=== PATIENT | male | born 1940 | race Caucasian/White ===

== ENCOUNTER 2022-05-23 12:57 | Observation (INO) | payer MEDICARE, SELFPAY ==
[2022-05-23] VITALS (10 sets, daily range): BP systolic 132–153; BP diastolic 63–86; PULSE 53–112; RESP 15–19; TEMP 36–36.8; O2SAT 96–98; BMI 26.6; BMI 26.2
[2022-05-23 13:12] LABS: Absolute Lymphocyte Count 3.73 X10^3/uL (0.83-4.51); Absolute Neutrophil Count 7.7 X10^3/uL (2.0-7.7); Basophil# 0.08 X10^3/uL; Basophil% 0.6 % (0-1); Eosinophil# 0.08 X10^3/uL; Eosinophils% 0.6 % (0-5); Hematocrit 51.7 % (40-54); Lymphocyte # 3.73 X10^3/ul (0.83-4.51); Mean Corp Hgb Conc 32.9 g/dL (32-36); Mean Corpuscular Volume 85.2 fL (80-94); Mean Platelet Vol. 11.2 fl (6.2-12.0); Monocyte# 1.16 X10^3/uL; NRBC Flagged by Analyzer 0 % (0-5); Neutrophil # 7.73 X10^3/uL (2.7-7.7); Neutrophil % 60.1 % (47-70); Platelet Count 233 K/mm3 (150-450); RBC Distribution Width CV 13.2 % (11.6-14.6); RBC Distribution Width SD 40.5 fl (35.1-43.9); Red Blood Count 6.07 M/mm3 (4.6-6.2); White Blood Count 12.9 K/mm3 (4.4-11.0)
--- NOTE | 2022-05-23 13:20 | RAD_ITS ---
STUDY: X-RAY CHEST REASON FOR EXAM: Male, 81 years old. Chest pain. Syncope. TECHNIQUE: Single AP portable view of the chest. COMPARISON: None. FINDINGS: EKG electrodes are seen. The lungs are clear and expanded. There is no demonstrated pleural abnormality. Normal size heart. Normal mediastinum and paul. Normal visualized pulmonary arteries. There is atherosclerotic tortuosity of the aortic arch and descending thoracic aorta. There are diffuse degenerative changes of the visualized thoracic spine. There is degenerative osteoarthritis of the bilateral shoulders. There is no demonstrated abnormality of the visualized soft tissue structures of the upper abdomen. RAD/Chest 1 View (Portable) IMPRESSION: No acute abnormality is seen. Electronically Signed: Julio Robison MD at 13:44 EDT ,
[2022-05-23 13:32] LABS: Anion Gap 6 (5-15); BUN 23 mg/dL (7-18); Calcium,Total 9.2 mg/dL (8.5-10.1); Chloride 109 mmol/L (98-107); Creatinine, Serum 1.35 mg/dL (0.70-1.30); EST Glomerular Filtration Rate 54 mL/min (>60); Est Glom Filt Rate - Afr Amer 66 mL/min (>60); Glucose 184 mg/dL (74-106); Potassium 3.8 mmol/L (3.5-5.1); Sodium Level 143 mmol/L (136-145); Troponin-I HS 15 pg/mL (3.0-78.0)
--- NOTE | 2022-05-23 13:43 | EDS_ITS ---
HPI History of Present Illness Chief Complaint: Syncope Detail of Chief Complaint: Syncope Informant: patient Onset/Context/Timing Onset: Today Narrative Narrative: Patient presents to the emergency department with syncopal episode. Patient was at a restaurant having soup and the looked away for a short time and when she looked back at the patient his shoulders were slumped and his head was slumped onto his chest and he was unresponsive. states that his left arm twitched a little bit but he does that pretty regularly. Episode lasted several minutes and he was back to more of his baseline by the time EMS arrived. Patient denies any chest pain or shortness of breath. He denies headache. There was no fall or trauma. Patient is on Xarelto for history of A. fib. He does not have a pacemaker. Patient has not been ill otherwise. states that patient had an episode maybe 8 years ago where he had a syncopal episode and that is when he found his A. fib. Prior similar symptoms: Yes [facility] Medical History (Updated 05/23/22 @ 14:[address] Joseph Conroy, DO) High cholesterol Hypertension Syncope Home Medications rivaroxaban 10 mg tablet (Xarelto) 10 mg PO DAILY 05/23/22 [History Last Taken Unknown] Allergy/AdvReac Type Severity Reaction Status Date / Time No Known Allergies Allergy Verified 05/23/22 13:05 Social History Smoking Status: Former smoker ROS ROS ED ROS Narrative Syncope Review of Systems ROS Unobtainable: other Constitutional Constitutional ED: Reports lethargy; Denies chills, fever(s), sweats or weight loss Eyes Eyes: Denies blurry vision, change in vision or diplopia ENT ENT ED: Denies rhinorrhea or sore throat Cardiovascular Cardiovascular: Denies chest pain, orthopnea or racing heartbeat Respiratory/Chest Respiratory/Chest: Denies cough, dyspnea, dyspnea on exertion, orthopnea or sputum Gastrointestinal Gastrointestinal: Denies abdominal pain, diarrhea, nausea or vomiting Genitourinary Genitourinary ED: Denies dysuria, hematuria or urinary frequency Musculoskeletal Musculoskeletal: Denies arthralgias, back pain, myalgias or neck pain Integumentary Denies abscess, Abrasions or rash Neurologic Neurologic: Denies headache(s) or weakness Psychiatric Psychiatric: Denies anxiety, depression or suicidal thoughts Endocrine Endocrinology: Denies polydipsia, polyphagia or polyuria Hematologic/Lymphatic Hematologic/Lymphatic: Denies easy bleeding, easy bruising or lymphadenopathy Allergic/Immunologic Allergic/Immunologic ED: Denies mouth swelling, tongue swelling or urticaria EXAM Physical Exam Const Vital Signs: 05/23/22 12:58 05/23/22 13:09 05/23/22 13:09 Temperature 96.8 F L Temperature Source Temporal Pulse Rate 103 H Respiratory Rate 19 H Respiratory Effort Normal Non-Labored Blood Pressure 148/81 H Blood Pressure Mean 103 Pulse Ox 96 Oxygen Delivery Method Room Air Room Air Positive well nourished and well developed General Appearance ED: well developed and NAD HEENT Reports TM's clear and moist mucous membranes normocephalic and atraumatic; Negative for trauma or tenderness Tympanic Membrane ED: Yes TM's clear Eyes PERRL and EOMs intact bilaterally General Eye ED: Negative for pale conjunctiva or scleral icterus Neck no lymphadenopathy, supple and no JVD General: Negative for tenderness Chest Wall inspection of chest normal and palpation of chest normal Chest: Negative for tenderness Resp normal respiratory effort and clear to auscultation bilaterally Effort and Inspection: Negative for respiratory distress or pain with movement Auscultation: Negative for rhonchi, wheezes or diminished lung sounds Cardio S1 normal heart sound, S2 normal heart sound and no murmurs Rhythm: abnormal rhythm irregularly irregular Peripheral Pulses: pulses 2+ throughout GI normal to inspection, nondistended, normoactive bowel sounds, soft to palpation, non-tender, non-distended and no masses Back/Spine no CVA tenderness and no thoracic nor lumbar tenderness Extremity normal to inspection General Extremety ED: Negative for edema General Extremity: Negative for edema Neuro oriented x3, CN's II-XII intact bilaterally, no sensory deficits noted and gait normal Sensorium / Orientation: awake, alert, oriented to person, oriented to place and oriented to time Motor Exam: strength 5/5 throughout and strength abnormal Psych mental status grossly normal Skin no rashes or lesions noted and no wounds MDM MDM MDM Narrative Medical decision making narrative: IV line established on arrival. Patient placed on a cardiac monitor technician. EKG obtained showed atrial fibrillation with frequent PVCs. Lab work shows white count of 12.9. Hemoglobin 17. Chemistries unremarkable. Troponin was 15. CT scan of the brain without contrast was unremarkable. Etiology of patient's syncope unclear. Patient case discussed with hospitalist will evaluate patient for admission Lab Data Attestation: I reviewed the patient's lab results. Labs: Laboratory Results - last 24 hr 05/23/22 05/23/22 13:03 13:03 WBC 12.9 H RBC 6.07 Hgb 17.0 H Hct 51.7 MCV 85.2 MCH 28.0 MCHC 32.9 RDW Std Deviation 40.5 RDW Coeff of Jules 13.2 Plt Count 233 MPV 11.2 Immature Gran % (Auto) 0.700 Neut % (Auto) 60.1 Lymph % (Auto) 29.0 [place] % (Auto) 9.0 Eos % (Auto) 0.6 Baso % (Auto) 0.6 Absolute Neuts (auto) 7.7 Absolute Lymphs (auto) 3.73 Nucleated RBC % 0 Sodium 143 Potassium 3.8 Chloride 109 H Carbon Dioxide 28.0 Anion Gap 6 BUN 23 H Creatinine 1.35 H Estim Creat Clear Calc 48.70 Est GFR (MDRD) Af Amer 66 Est GFR (MDRD) Non-Af 54 L BUN/Creatinine Ratio 17.0 Glucose 184 H Calcium 9.2 Troponin I High Sens 15 Radiography Diagnostic Testing: Clinical Impression(s) from Imaging Studies Chest X-Ray 05/23/22 13:20 IMPRESSION: No acute abnormality is seen. Electronically Signed: Julio Robison MD at 13:44 EDT , Brain CT 05/23/22 14:00 IMPRESSION: Chronic involutional changes of the brain. Electronically Signed: Julio Robison MD at 14:14 EDT , EKG Initial EKG: Attestation: I personally reviewed and interpreted this EKG as follows: Comments: Atrial fibrillation with a ventricular rate of 110 bpm with occasional PVCs and nonspecific ST changes Discharge Plan Triage Chief Complaint: Syncope ED Provider: Joseph Conroy Dx/Rx/DC Orders Clinical Impression: Syncope, Atrial fibrillation, Leukocytosis Prescriptions: No Action Xarelto 10 mg Tablet 10 mg PO DAILY Primary Care Provider: KEVIN ALMANZA Referrals: KEVIN ALMANZA [Other] Disposition Disposition: Acute Care Hospital [facility]
--- NOTE | 2022-05-23 14:00 | CT_ITS ---
STUDY: CT BRAIN WITHOUT CONTRAST REASON FOR EXAM: Male, 81 years old. Syncope, mental status change RADIATION DOSAGE (If Supplied By Facility): CTDIvol = ( 44.99 ) mGy, DLP = ( 897.35 ) mGycm TECHNIQUE: Transaxial CT imaging of the brain was performed without administration of intravenous contrast material. Individualized dose optimization techniques were used for this CT. COMPARISON: No relevant priors. FINDINGS: Normal soft tissue structures. Normal calvarium. There is mild cerebral atrophy with widening of the extra-axial spaces and ventricular dilatation. There are areas of decreased attenuation within the white matter tracts of the supratentorial brain, consistent with microvascular disease changes. Normal basal ganglia and thalami. Normal brainstem. Normal cerebellum. There is no intracranial hemorrhage. There are no findings of an acute ischemic infarction. Atherosclerotic plaque formation of the cavernous portions of the internal carotid arteries bilaterally. Normal visualized paranasal sinuses. CT/Brain/Head without Contrast IMPRESSION: Chronic involutional changes of the brain. Electronically Signed: Julio Robison MD at 14:14 EDT ,
--- NOTE | 2022-05-23 14:31 | PCM.HP.STD ---
HPI - General General Date of Admission: 05/23/22 Date of Service: 05/23/22 Chief Complaint: Syncope HPI Narrative The patient is a 81 y/o M w/ PMHx: Former tobacco use, PAF on xarelto not normally in atrial fibrillation with last episode with prior syncopal event remotely, HTN, HLD, Gout, Hypothyroidism who presents to the [facility] ED on 05/23/22 with history of being at the restaurant with his spouse seated at the table with syncopal event while eating with unresponsive state with concurrent mild left arm twitching however this is a chronic occasional issue and happens when he is awake as well and functional with episode lasting several minutes with improvement to his baseline upon EMS arrival with no recent chest pain, dyspnea, headache or recent falls prompting ED evaluation. Per report by spouse patient did have a similar episode approximately 8 years prior which is when they diagnosed him with atrial fibrillation. He states that he is not commonly in atrial fibrillation and only was with his last prior syncopal event. He does state that prior to his syncopal event he felt anxious as well as nauseous and sick to his stomach with onset of diaphoresis and sensation of feeling profoundly hot followed by his syncopal event. Work-up in the ED included T96.8, heart rate 103, BP 148/81, respiratory rate 19, 96% on room air, CBC with WC 12.9, hemoglobin 17, platelet 233 without marked shift, BMP with chloride 109, BUN/creat 23/1.35, glucose 184, troponin 15, chest x-ray with no acute cardiopulmonary findings, CT brain with no acute intracranial findings, EKG with atrial fibrillation with rate 100-120s occasionally. In the ED he notes feeling improved and at his baseline despite still being in atrial fibrillation but his rate is suspected to have improved. [facility] Medical History (Updated 05/23/22 @ 15:[address] Laurel Aburto MD) Former tobacco use Gout High cholesterol History of syncope Hypertension Hypothyroidism PAF (paroxysmal atrial fibrillation) Home Medications [id number] calc. 600 mg-2 mg-6 mg tablet (Metafolbic Plus) 1 tab PO DAILY 05/23/22 [History Last Taken 05/22/22 16:00] allopurinol 100 mg tablet 100 mg PO QHS gout 05/23/22 [History Last Taken 05/22/22 22:00] levothyroxine 25 mcg tablet 25 mcg PO DAILY thyroid 05/23/22 [History Last Taken 05/22/22 22:00] metoprolol tartrate 50 mg tablet 50 mg PO QHS 05/23/22 [History Last Taken 05/22/22 22:00] pravastatin 10 mg tablet 10 mg PO QHS 05/23/22 [History Last Taken 05/22/22 22:00] rivaroxaban 10 mg tablet (Xarelto) 10 mg PO DAILY 05/23/22 [History Last Taken 05/22/22 22:00] Allergy/AdvReac Type Severity Reaction Status Date / Time No Known Allergies Allergy Verified 05/23/22 13:05 Family History (Updated 05/23/22 @ 15:[address] Laurel Aburto MD) Mother COPD (chronic obstructive pulmonary disease) Asthma Father Hypertension Surgical History (Updated 05/23/22 @ 15:[address] Laurel Aburto MD) No history of previous surgery Social History (Updated 05/23/22 @ 15:[address] Laurel Aburto MD) household members: spouse Smoking Status: Former smoker how long ago did patient quit smoking: Quit 50 years prior, started age 21 while in the [employer] 08/20 ppd until quit. alcohol intake: never substance use type: does not use ROS ROS Narrative Admission Review of Systems: CONSTITUTIONAL: No weight loss, fever, chills, + weakness or fatigue. HEENT: Eyes: No visual loss, blurred vision, double vision or yellow sclerae. Ears, Nose, Throat: No hearing loss, sneezing, congestion, runny nose or sore throat. SKIN: No rash or itching, lesions, wounds. CARDIOVASCULAR: + Syncope. No chest pain, chest pressure or chest discomfort, palpitations, edema, orthopnea. RESPIRATORY: No shortness of breath, cough or sputum, wheezing, hemoptysis. GASTROINTESTINAL: + anorexia, nausea without vomiting, No diarrhea, abdominal pain, melena, BRBPR. GENITOURINARY: No dysuria, frequency, urgency or retention. NEUROLOGICAL: + Syncope. No headache, paralysis, ataxia, numbness or tingling in the extremities, focal weakness, change in bowel or bladder control, seizure. MUSCULOSKELETAL: + muscle, back pain, joint pain or stiffness. HEMATOLOGIC: + Easy bleeding or bruising. LYMPHATICS: No enlarged nodes. No history of splenectomy. PSYCHIATRIC: No history of depression or anxiety. ENDOCRINOLOGIC: + reports of sweating, hot. No polyuria or polydipsia. ALLERGIES: No history of asthma, hives, eczema or rhinitis. Vital Signs Vital Signs Vital Signs: 05/23/22 12:58 05/23/22 13:09 05/23/22 13:09 Temperature 96.8 F L Temperature Source Temporal Pulse Rate 103 H Respiratory Rate 19 H Respiratory Effort Normal Non-Labored Blood Pressure 148/81 H Blood Pressure Mean 103 Pulse Ox 96 Oxygen Delivery Method Room Air Room Air Weight Weight: 196 lb 13.965 oz Body Mass Index (BMI) 26.6 Physical Exam Narrative Physical Examination: General: Awake, alert, oriented x 3 and cooperative, seated upright in the ED bed, fatigued, notes feeling improved since his initial presentation and since syncopal event, notes feeling returned to baseline. Skin: Normal color, normal turgor, no icterus, no cyanosis. HEENT: AT/NC, EOMI, PERRLA, mildly dry MM, no carotid bruits or JVD noted. Lungs: Mildly diminished, greater bases, appropriate effort, no rales, ronchi or wheezing. Heart: Irregular irregular; no gallop, rub audible. Abdomen: Soft, overweight, NTTP, ND, normal BS, no HSM. Extremities: No cyanosis, clubbing, or edema. Neurological: Patient awake, alert, oriented as noted, cognitive function improved, now baseline intact; pupils equally reactive to light and accommodation, cranial nerves II-XII grossly normal, moving all 4 extremities, no focal deficits, strength improved, mildly global decrease secondary to recent events. Psychiatric: Affect appears fatigued otherwise normal, no acute evidence of depressive or anxiety feelings. Results Lab / Micro Data Result Diagrams: 05/23/22 13:03 05/23/22 13:03 Labs: Laboratory Results - last 24 hr 05/23/22 13:03: WBC 12.9 H, RBC 6.07, Hgb 17.0 H, Hct 51.7, MCV 85.2, MCH 28.0, MCHC 32.9, RDW Std Deviation 40.5, RDW Coeff of Jules 13.2, Plt Count 233, MPV 11.2, Immature Gran % (Auto) 0.700, Neut % (Auto) 60.1, Lymph % (Auto) 29.0, [place] % (Auto) 9.0, Eos % (Auto) 0.6, Baso % (Auto) 0.6, Absolute Neuts (auto) 7.7, Absolute Lymphs (auto) 3.73, Nucleated RBC % 0 05/23/22 13:03: Sodium 143, Potassium 3.8, Chloride 109 H, Carbon Dioxide 28.0, Anion Gap 6, BUN 23 H, Creatinine 1.35 H, Estim Creat Clear Calc 48.70, Est GFR (MDRD) Af Amer 66, Est GFR (MDRD) Non-Af 54 L, BUN/Creatinine Ratio 17.0, Glucose 184 H, Calcium 9.2, Troponin I High Sens 15 Radiology Impression Chest X-Ray 05/23/22 13:20 IMPRESSION: No acute abnormality is seen. Electronically Signed: Julio Robison MD at 13:44 EDT , Brain CT 05/23/22 14:00 IMPRESSION: Chronic involutional changes of the brain. Electronically Signed: Julio Robison MD at 14:14 EDT , Assessment & Plan Assessment/Plan (1) Syncope: (2) Atrial fibrillation: PLAN: Plan The patient is a 81 y/o M w/ PMHx: Former tobacco use, PAF on xarelto not normally in atrial fibrillation with last episode with prior syncopal event remotely, HTN, HLD, Gout, Hypothyroidism who presents to the [facility] ED on 05/23/22 with history of being at the restaurant with his spouse seated at the table with syncopal event while eating with unresponsive state for several minutes with patient reporting prior to his syncopal event he felt anxious as well as nauseous and sick to his stomach with onset of diaphoresis and sensation of feeling profoundly hot. #1. Syncopal Event: Suspect syncopal event likely secondary to recurrent atrial fibrillation with RVR EKG in ED w/ chronic atrial fibrillation with RVR however rate has since improved and per discussion with patient he is not commonly in this rhythm and had syncopal event approximate years prior and was noted to be in atrial fibrillation at that time thus believe this is the etiology, CXR w/ no acute cardiopulmonary findings, CT of the brain with no acute intracranial finding, initial trop 15. Will admit to PCU, place on a monitored bed to assure no acute myocardial infarction with serial cardiac enzymes and EKGs, maintain on fall precautions, obtain admission orthostatic and AM orthostatic VS and increase hydration if appropriate to be cautious but again believe this is secondary to atrial fibrillation with RVR recurrence, obtain ECHO. #2. Paroxsymal atrial fibrillation w/ RVR, suspect likely etiology for #1: EKG in ED w/ atrial fibrillation w/ RVR however rate did improve to the 100-110 range. Will maintain on telemetry, obtain cardiac enzyme serial set, obtain magnesium level, obtain ECHO, obtain TSH level, will dose with patient's metoprolol now and continue as well as his home Eliquis regimen. Given that he is improved and feels better we will hold off on cardiology involvement but low threshold to involve given that he is anticoagulated could consider cardioversion if continues to be symptomatic or issues arise peer #3. Acute Renal Insufficiency versus ANTOINE versus Possible Underlying Chronic Kidney Disease Stage stage III, Unclear subtype: Admission BUN/Cr 23/1.35, baseline renal function unknown as no comparison therefore certainly could be mild renal insufficiency versus ANTOINE versus chronic underlying kidney disease, plan repeat function in the a.m. which will help elucidate whether or not this is an acute or chronic creatinine level. #4. PAF: We will continue patient home metoprolol and Eliquis regimen with dose of metoprolol now, recurrent atrial fibrillation likely etiology for acute presentation #1. #5. Hyperglycemia: Admission glucose 184, no diabetic history, hemoglobin A1c will be requested. #6. Hypertension: Continue home regimen including metoprolol with hold parameters or alteration as needed, PRN hydralazine. #7. Hyperlipidemia: We will continue patient on statin therapy. #8. Hypothyroidism: We will continue patient home levothyroxine regimen. #9. Former tobacco use: Encourage continued tobacco cessation. #10. Gout: We will continue patient on allopurinol regimen. #11. DVT prophylaxis: SCDs, continue patient home Xarelto regimen. Charges/Coding Visit Charges OBSV E&M: 10659 Initial observation care L3
--- NOTE | 2022-05-23 14:51 | NURSING ---
PCU WHITE SYNCOPE, AFIB
--- NOTE | 2022-05-23 15:11 | ECHOD_ITS ---
Reason For Study: PAF Procedure This was a 2D Doppler, Color Flow transthoracic echocardiogram. The study was technically difficult. Exam performed portable in patient room. Left Ventricle Normal LV size. Left ventricular systolic function is normal. The estimated ejection fraction is 50 %. No regional wall motion abnormalities noted. Right Ventricle Normal RV size. Normal systolic function. Atria Normal left atrium. Normal right atrium. Mitral Valve Normal mitral valve. Tricuspid Valve Normal tricuspid valve. Aortic Valve Trisinus/trileaflet aortic valve. Pulmonic Valve Normal pulmonic valve. Great Vessels Normal aortic root. The pulmonary artery is normal size. Normal inferior vena cava. Pericardium/Pleural No pericardial effusion. MMode/2D Measurements & Calculations LVIDd: 4.6 cm IVSd: 0.93 cm Ao root diam: 3.2 cm LVIDs: 3.2 cm LVPWd: 0.97 cm RVDd: 4.1 cm FS: 29.9 % LAV(MOD-bp): 44.8 ml LVAd ap4: 24.9 cm2 SV(MOD-sp4): 38.6 ml LAV(MOD-bp) Indexed: 21.2 ml/m2 LVLd ap4: 8.2 cm LAV(MOD-sp2): 41.9 ml EDV(MOD-sp4): 67.5 ml LAV(MOD-sp4): 39.9 ml EDV(sp4-el): 63.7 ml LVAs ap4: 15.2 cm2 LVLs ap4: 6.9 cm ESV(MOD-sp4): 28.9 ml ESV(sp4-el): 28.5 ml EF(MOD-sp4): 57.2 % EF(sp4-el): 55.3 % SV(sp4-el): 35.2 ml LA A4 area: 17.1 cm2 LA dimension(2D): 3.9 cm RA A4 area: 15.5 cm2 Doppler Measurements & Calculations MV E max sohail: 84.1 cm/sec Ao V2 max: 72.9 cm/sec LV V1 max: 64.8 cm/sec Ao max P.2 mmHg LV V1 max P.7 mmHg PA V2 max: 81.8 cm/sec ECHO/Echo Complete Interpretation Summary Normal LV size. Left ventricular systolic function is normal. The estimated ejection fraction is 50 %. The study was technically limited. Ordering Physician: Laurel Aburto Referring Physician: NO LISTED PCP Performed By: Maria Luisa Higginbotham RDCS
[2022-05-23 16:14] LABS: Troponin-I HS 14 pg/mL (3.0-78.0)
[2022-05-23] MEDS: Metoprolol Tartrate 50 MG Tablet PO ×2 (16:24→21:18)
[2022-05-23] MEDS: 0.9% Normal Saline 1,000 ML 100 ML IV (16:25)
[2022-05-23] MEDS: Rivaroxaban 10 MG Tablet PO (16:28)
[2022-05-23] MEDS: 0.9% Saline Lock 10 ML Syringe IV (16:28)
[2022-05-23 19:59] LABS: Troponin-I HS 16 pg/mL (3.0-78.0)
[2022-05-23] MEDS: Pravastatin 20 MG Tablet 10 MG PO (21:18)
[2022-05-23] MEDS: Allopurinol 100 MG Tablet PO (21:18)
[2022-05-24] VITALS (8 sets, daily range): BP systolic 143–170; BP diastolic 72–77; PULSE 55–61; RESP 15–18; TEMP 36.4–36.7; O2SAT 94–97
[2022-05-24] MEDS: Levothyroxine 25 MCG TABLET PO (05:39)
[2022-05-24 06:12] LABS: Absolute Lymphocyte Count 2.69 X10^3/uL (0.83-4.51); Absolute Neutrophil Count 8.1 X10^3/uL (2.0-7.7); Basophil# 0.06 X10^3/uL; Basophil% 0.5 % (0-1); Eosinophil# 0.11 X10^3/uL; Eosinophils% 0.9 % (0-5); Hematocrit 45.2 % (40-54); Hemoglobin 14.9 g/dL (13.0-16.5); Lymphocyte # 2.69 X10^3/ul (0.83-4.51); Lymphocyte % 21.9 % (19-41); Mean Corpuscular Hgb 28.5 pg (27.0-32.0); Mean Corpuscular Volume 86.4 fL (80-94); Mean Platelet Vol. 10.5 fl (6.2-12.0); Monocyte# 1.25 X10^3/uL; Monocyte% 10.2 % (0-10); NRBC Flagged by Analyzer 0 % (0-5); Neutrophil # 8.08 X10^3/uL (2.7-7.7); Neutrophil % 65.9 % (47-70); Platelet Count 209 K/mm3 (150-450); RBC Distribution Width CV 13.2 % (11.6-14.6); RBC Distribution Width SD 40.9 fl (35.1-43.9); Red Blood Count 5.23 M/mm3 (4.6-6.2); White Blood Count 12.3 K/mm3 (4.4-11.0)
[2022-05-24 06:43] LABS: ALB/GLOB Ratio 0.9 RATIO (0.9-2.4); AST(SGOT) 11 U/L (15-37); Alanine Aminotransfer ALT/SGPT 12 U/L (16-61); Albumin, Serum 2.8 g/dL (3.2-5.0); Alkaline Phosphatase 81 U/L (45-117); Anion Gap 6 (5-15); BUN 21 mg/dL (7-18); BUN/Creat Ratio 19.1 RATIO (10-20); Calcium,Total 8.5 mg/dL (8.5-10.1); Chloride 113 mmol/L (98-107); Cholesterol 139 mg/dL (200); EST Glomerular Filtration Rate 69 mL/min (>60); Est Glom Filt Rate - Afr Amer 83 mL/min (>60); Estimated Creatinine Clearance 59.77 ml/min; Globulin 3.2 g/dL (2.2-4.2); Glucose 97 mg/dL (74-106); High Density Lipoprotein 28 mg/dL; Potassium 4.1 mmol/L (3.5-5.1); Sodium Level 145 mmol/L (136-145); T4 Free Direct 1.37 ng/dL (0.76-1.46); Thyroid Stim Hormone (TSH) 1.96 uIU/mL (0.358-3.74); Triglycerides 91 mg/dL; Very Low Density Lipoprotein 18 mg/dL (5-40)
[2022-05-24 08:26] LABS: Hemoglobin A1c 6.2 % (3.8-5.6)
[2022-05-24] MEDS: Petrolatum 33% Tube 1 APPLIC TOPICAL (09:24)
[2022-05-24] MEDS: Metoprolol Tartrate 50 MG Tablet PO (09:25)
--- NOTE | 2022-05-24 10:08 | CASEMGMT ---
RHETT CALL NOTE: RHETT CALL to room. Introduced self and role. Pt states he lives @ home w/his . He states he is a little unsteady @ his baseline, and states he feels he is back to his baseline. He states he has a walker, but does not usually use the walker unless going long/community distances. Otherwise, he uses no other DME to ambulate. He denies need for OP therapy or HHC and states he does not even feels he needs therapy to work with him while here. He denies having any other discharge planning needs and feels safe to return home @ discharge. He states his can assist him, if needed. Elodia RIVERA RN, CM
--- NOTE | 2022-05-24 11:18 | PCM.DC.SUM ---
Providers Date of Admission: 05/23/22 Date of Discharge: 05/24/22 Primary Care Physician: KEVIN ALMANZA Reason For Visit: SYNCOPE Diagnosis Discharge Diagnosis (1) Syncope: Status: Acute Code(s): R55 - Syncope and collapse (2) Atrial fibrillation: Status: Acute Code(s): I48.91 - Unspecified atrial fibrillation Medications at Discharge Home Medications oqrvciaxxgkssi-myskwmkzopf-yqxujnpjuvvz calc. 600 mg-2 mg-6 mg tablet (Metafolbic Plus) 1 tab PO DAILY 05/23/22 allopurinol 100 mg tablet 100 mg PO QHS gout 05/23/22 levothyroxine 25 mcg tablet 25 mcg PO DAILY thyroid 05/23/22 metoprolol tartrate 50 mg tablet 50 mg PO QHS 05/23/22 pravastatin 10 mg tablet 10 mg PO QHS 05/23/22 rivaroxaban 10 mg tablet (Xarelto) 10 mg PO DAILY 05/23/22 Hospital Course Operations None Procedures 2-D Echocardiogram Summary of Care Provided Minutes Spent on Discharge: 25 Hospital Course: Mr. Fallon is a 81-year-old white male who presented to the ED at [facility] on 05/23/2022 after a syncopal event. It occurred while he was eating at a restaurant and he had an unresponsive state with mild concurrent left arm twitching which his reported was chronic and occasional. The twitching happens while he is awake as well. His syncopal episode lasted several minutes with improvement to his baseline prior to arrival to the emergency department. He had no chest pain, dyspnea, headache or recent falls. His reported that he had a similar episode approximately 8 years prior at which time they diagnosed him with atrial fibrillation and he was started on metoprolol and Xarelto. The patient did indicate that prior to his syncopal event he felt anxious as well as nauseated and sick to his stomach and had a sensation of diaphoresis and was profoundly hot prior to the event. Work-up in the ED included T96.8, heart rate 103, BP 148/81, respiratory rate 19, 96% on room air, CBC with WC 12.9, hemoglobin 17, platelet 233 without marked shift, BMP with chloride 109, BUN/creat 23/1.35, glucose 184, troponin 15, chest x-ray with no acute cardiopulmonary findings, CT brain with no acute intracranial findings, EKG with atrial fibrillation with rate 100-120s occasionally. In the ED he notes feeling improved and at his baseline despite still being in atrial fibrillation but his rate is suspected to have improved. Given the above he was placed in the ICU and maintained on telemetry during his hospitalization. He did revert to normal sinus rhythm during the night. An echocardiogram was performed and showed an EF of 50% with normal left ventricular systolic function. No valvular abnormalities were identified. His renal function returned to baseline from 1.35-1.1. His hemoglobin A1c was found to be 6.2 lipids were obtained and he was found to have a total cholesterol of 139/LDL of 93 and an HDL of 28. His thyroid was normal at 1.96. On the a.m. of 05/24/2022 the patient was very anxious to go home he stated that he felt fine and there is no reason for him to stay further in the hospital. Given the fact that he was at baseline with a normal echocardiogram and the fact that we did have atrial fibrillation which reverted to sinus rhythm I feel that this possibly some vasovagal event caused his syncopal episode. If he has recurrent events I would do further work-up including an event monitor but at this time I feel he can follow-up with his outpatient physician and he was discharged home in stable condition on 05/24/2022. 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--> diet control Hypertension Hyperlipidemia History of gout History of hypothyroidism Suspected COPD History of tobacco abuse Physical Exam Const alert and oriented x3 Constitutional Narrative: Older white male sitting up in bed, watching television, appears comfortable nontoxic, states he is anxious to go home and asking when he can leave General Appearance: cooperative, comfortable, well kempt and well developed Orientation / Consciousness: awake, oriented to person, oriented to place and oriented to time Exam Limitations: no limitations HEENT normocephalic, head/scalp atraumatic and moist oral mucous membranes HEENT Narrative: Moderate hearing loss, dentition is poor, Mallampati is 2, no thrush Resp normal respiratory effort, no retractions, no use of accessory muscles and clear to auscultation bilaterally Resp Narrative: Diminished but clear Auscultation: Negative for crackles, rales, rhonchi or wheezes Cardio regular rate, regular rhythm, S1 normal heart sound, S2 normal heart sound, no murmurs, no rub, no gallops, no clicks and no JVD GI normal to inspection, nondistended, normoactive bowel sounds, soft to palpation and non-tender Extremity no clubbing, cyanosis or edema Skin no wounds, skin turgor normal and no jaundice Skin Narrative: Legs are significantly dry with scaled skin Neuro oriented x3, CN's II-XII intact bilaterally, moves all extremities and no focal motor deficits Neuro Narrative: Minimal generalized weakness Speech: speech normal Psych affect normal Weight / BMI Weight Weight: 87.6 kg Body Mass Index (BMI) 26.2 ABG / Lab / Microbiology Data Result Diagrams: 05/24/22 05:43 05/24/22 05:43 Laboratory: Laboratory Results - last 24 hr 05/23/22 13:03: WBC 12.9 H, RBC 6.07, Hgb 17.0 H, Hct 51.7, MCV 85.2, MCH 28.0, MCHC 32.9, RDW Std Deviation 40.5, RDW Coeff of Jules 13.2, Plt Count 233, MPV 11.2, Immature Gran % (Auto) 0.700, Neut % (Auto) 60.1, Lymph % (Auto) 29.0, [place] % (Auto) 9.0, Eos % (Auto) 0.6, Baso % (Auto) 0.6, Absolute Neuts (auto) 7.7, Absolute Lymphs (auto) 3.73, Nucleated RBC % 0 05/23/22 13:03: Sodium 143, Potassium 3.8, Chloride 109 H, Carbon Dioxide 28.0, Anion Gap 6, BUN 23 H, Creatinine 1.35 H, Estim Creat Clear Calc 48.70, Est GFR (MDRD) Af Amer 66, Est GFR (MDRD) Non-Af 54 L, BUN/Creatinine Ratio 17.0, Glucose 184 H, Calcium 9.2, Troponin I High Sens 15 05/23/22 13:03: Magnesium 2.0 05/23/22 15:40: Troponin I High Sens 14 05/23/22 19:05: Troponin I High Sens 16 05/24/22 05:43: WBC 12.3 H, RBC 5.23, Hgb 14.9, Hct 45.2, MCV 86.4, MCH 28.5, MCHC 33.0, RDW Std Deviation 40.9, RDW Coeff of Jules 13.2, Plt Count 209, MPV 10.5, Immature Gran % (Auto) 0.600, Neut % (Auto) 65.9, Lymph % (Auto) 21.9, [place] % (Auto) 10.2 H, Eos % (Auto) 0.9, Baso % (Auto) 0.5, Absolute Neuts (auto) 8.1 H, Absolute Lymphs (auto) 2.69, Nucleated RBC % 0 05/24/22 05:43: Sodium 145, Potassium 4.1, Chloride 113 H, Carbon Dioxide 26.0, Anion Gap 6, BUN 21 H, Creatinine 1.10, Estim Creat Clear Calc 59.77, Est GFR (MDRD) Af Amer 83, Est GFR (MDRD) Non-Af 69, BUN/Creatinine Ratio 19.1, Glucose 97, Calcium 8.5, Total Bilirubin 0.80, AST 11 L, ALT 12 L, Alkaline Phosphatase 81, Total Protein 6.0 L, Albumin 2.8 L, Globulin 3.2, Albumin/Globulin Ratio 0.9, Triglycerides 91, Cholesterol 139, LDL Cholesterol 93, VLDL Cholesterol 18, HDL Cholesterol 28 L, TSH 1.96, Free T4 1.37 05/24/22 05:43: Hemoglobin A1c 6.2 H Radiography Diagnostic Testing: Radiology Impression Chest X-Ray 05/23/22 13:20 IMPRESSION: No acute abnormality is seen. Electronically Signed: Julio Robiosn MD at 13:44 EDT , Brain CT 05/23/22 14:00 IMPRESSION: Chronic involutional changes of the brain. Electronically Signed: Julio Robison MD at 14:14 EDT , Echocardiogram 05/23/22 15:11 Interpretation Summary Normal LV size. Left ventricular systolic function is normal. The estimated ejection fraction is 50 %. The study was technically limited. Ordering Physician: Laurel Aburto Referring Physician: NO LISTED PCP Performed By: Maria Luisa Higginbotham RDCS D/C Instructions Discharge Diet: Low fat / Low cholesterol Discharge Activity: Return to Normal Activity Meaningful Use Info Meaningful Use Diagnoses (Choose all that apply): None applicable Discharge Plan Admission Admit Date/Time: 05/23/22 14:32 Primary Reason for Your Visit: Syncope Attending Provider: Daiana Sinclair Primary Care Provider: KEVIN ALMANZA Consulting Providers: Laurel Aburto Discharge Orders/Prescriptions Prescriptions: Continued Xarelto 10 mg Tablet 10 mg PO DAILY allopurinol 100 mg tablet 100 mg PO QHS Label Comments: take 1 tablet by mouth once daily 90 levothyroxine 25 mcg tablet 25 mcg PO DAILY Label Comments: 1 tab(s) orally once a day 30 days pravastatin 10 mg tablet 10 mg PO QHS metoprolol tartrate 50 mg tablet 50 mg PO QHS Label Comments: take 1 tablet by mouth twice a day Metafolbic Plus 600-2-6 mg tablet 1 tab PO DAILY Label Comments: take 1 tablet by mouth once daily Referrals / Follow Up: KEVIN ALMANZA [Other] - Within 2 Weeks KEVIN ALMANZA [Other] Disposition Disposition (needs filled in before D/C Order can be placed): Home, Self Care Charges/Coding Visit Charges OBSV E&M: 02178 Observation care discharge
== END 2022-05-24 11:26 | disposition home or self-care (01) ==
LOC: ED 14:39 → PCU 14:51
PROVIDERS: Admitting Provider Family Medicine; Emergency Provider Emergency Medicine; Visit Provider Internal Medicine
DX: I48.0 Paroxysmal atrial fibrillation (principal); E11.65 Type 2 diabetes mellitus with hyperglycemia; M10.9 Gout, unspecified; Z79.01 Long term (current) use of anticoagulants; I49.3 Ventricular premature depolarization; I10 Essential (primary) hypertension; E78.00 Pure hypercholesterolemia, unspecified; Z79.899 Other long term (current) drug therapy; E03.9 Hypothyroidism, unspecified; Z79.890 Hormone replacement therapy; Z87.891 Personal history of nicotine dependence
CPT/HCPCS: 36415; 70450; 71045; 80048; 80053; 80061; 83036; 83735; 84439; 84443; 84484; 85025; 93005; 93306; 96360; 96361; 99218; 99285; J7030; A4216; G0378